=== PATIENT | female | born 1985 | race Caucasian/White ===

== ENCOUNTER 2016-06-27 21:33 | Emergency (ER) | payer MEDICAID ==
[~2016-06-27] VITALS: Ht 154.9 cm; Wt 70.0 kg
[~2016-06-27 21:33] MED LIST: PNV1TABL76 PO
[2016-06-27 22:32] VITALS: BP 153/100
== END 2016-06-28 01:00 | disposition left against medical advice (07) ==
LOC: ER 21:34
DX: Z04.8 Encounter for examination and observation for other specified reasons (principal); Z53.21 Procedure and treatment not carried out due to patient leaving prior to being seen by health care provider

== ENCOUNTER 2016-06-30 00:36 | Emergency (ER) | payer MEDICAID ==
[~2016-06-30] VITALS: Ht 154.9 cm; Wt 69.0 kg
[2016-06-30 03:10] LABS: CLARITY URINE CLOUDY (CLEAR); COLOR URINE YELLOW (YELLOW); GLUCOSE URINE NEGATIVE (NEGATIVE); KETONES URINE NEGATIVE (NEGATIVE); LEUKOCYTE ESTERASE URINE TRACE (NEGATIVE); NITRITE URINE NEGATIVE (NEGATIVE); OCCULT BLOOD URINE NEGATIVE (NEGATIVE); PH URINE 5.5 (4.5-8.0); PROTEIN URINE 1+ (NEGATIVE); SPECIFIC GRAVITY URINE 1.036 (1.005-1.030)
[2016-06-30 03:30] VITALS: BP 139/82
[2016-06-30 03:42] LABS: BACTERIA URINE 1+; SQUAMOUS EPITHELIAL CELL URINE 3+ /lpf (RARE/1+); WBC URINE 15-25 /hpf (0-2)
== END 2016-06-30 04:25 | disposition home or self-care (01) ==
LOC: ER 00:36
DX: A60.00 Herpesviral infection of urogenital system, unspecified (principal); N39.0 Urinary tract infection, site not specified; I10 Essential (primary) hypertension; Z98.890 Other specified postprocedural states
CPT/HCPCS: 81001; 81025; 99283

== ENCOUNTER 2017-10-28 21:18 | Emergency (ER) | payer MEDICAID ==
[~2017-10-28] VITALS: Ht 154.9 cm; Wt 54.6 kg
[2017-10-28 22:06] VITALS: BP 142/101
== END 2017-10-28 23:22 | disposition left against medical advice (07) ==
LOC: ER 21:18
DX: Z53.21 Procedure and treatment not carried out due to patient leaving prior to being seen by health care provider (principal)

== ENCOUNTER 2021-03-28 06:02 | Emergency (ER) | payer MEDICAID ==
[~2021-03-28] VITALS: Ht 157.5 cm; Wt 64.0 kg
[2021-03-28] MEDS ORDERED: ACETAMINOPHEN 325MG TABLET PO STA (06:32)
[2021-03-28] MEDS ORDERED: FAMOTIDINE 20MG TABLET PO ONE (06:45)
[2021-03-28 06:56] LABS: BASOPHILS % 0.9 % (0.0-2.0); EOSINOPHILS % 1.3 % (0.0-5.0); HEMATOCRIT. 35.4 % (36.0-48.0); LYMPHOCYTES % 15.7 % (20.0-50.0); MEAN CORPUSCULAR HEMOGLOBIN 29.5 pg (28.0-32.0); MEAN CORPUSCULAR VOLUME 86.8 fL (81.0-99.0); MEAN PLATELET VOLUME 8.7 fl (7.4-10.4); MONOCYTES % 9.4 % (2.0-8.0); NEUTROPHILS % 72.7 % (40.0-76.0); PLATELET 342 x1000/uL (130-400); RED BLOOD CELL COUNT 4.07 mill/uL (4.2-5.4); RED CELL DISTRIBUTION WIDTH 13.1 % (11.6-14.6)
[2021-03-28 07:00] LABS: CHLORIDE 104 mEq/L (98-107)
[2021-03-28 07:04] LABS: HCG SCREEN NEGATIVE
[2021-03-28] MEDS ORDERED: PROT20 MT (10:16)
[2021-03-28 10:36] VITALS: BP 149/99
== END 2021-03-28 10:37 | disposition home or self-care (01) ==
LOC: ER 06:02
DX: R07.89 Other chest pain (principal); I10 Essential (primary) hypertension; F15.10 Other stimulant abuse, uncomplicated; F17.290 Nicotine dependence, other tobacco product, uncomplicated
CPT/HCPCS: 36415; 71045; 80053; 83880; 84484; 84703; 85025; 85379; 93005; 99285

== ENCOUNTER 2022-01-21 10:44 | Emergency (ER) | payer MEDICAID ==
[~2022-01-21] VITALS: Ht 154.9 cm; Wt 68.0 kg
[~2022-01-21 10:44] MED LIST changes: +PROT20 MT
[2022-01-21 11:22] VITALS: BP 154/109
[2022-01-21] MEDS ORDERED: AZIT250T MT (13:46)
== END 2022-01-21 15:11 | disposition home or self-care (01) ==
LOC: ER 10:44
DX: J06.9 Acute upper respiratory infection, unspecified (principal); J18.9 Pneumonia, unspecified organism; I10 Essential (primary) hypertension; F15.10 Other stimulant abuse, uncomplicated; Z79.899 Other long term (current) drug therapy
CPT/HCPCS: 71045; 81025; 99283